=== PATIENT | female | born 1940 | race Caucasian/White ===

== ENCOUNTER → 2016-07-28 | Outpatient (CLI) | payer MEDICARE, OTHER ==
[~2016-07-28] MED LIST: 3N1 COMMODE MC; ASPI-781 PO; CIPR-193 PO; CPM MC; LAMO100T83 PO; LOSA50TA2 PO; METO100T13 PO; OXYC-481 PO; TRAM50TA2 PO; TRAZ50TA18 PO; WALK1EAC23 MC
--- NOTE | 2016-07-28 17:56 | RADRPT ---
PROCEDURE: Left knee radiographs. CLINICAL INDICATION: Left knee pain. Postop. TECHNIQUE: Three views. Weight bearing. Frontal, lateral, and patellar view. COMPARISON: 02/11/2016. FINDINGS: There is no fracture or dislocation. There is a moderate joint effusion. The soft tissues are otherwise normal. 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 There is no lytic or blastic lesion. IMPRESSION: 1. Moderate joint effusion. 2. Unremarkable total left knee arthroplasty. 3. Otherwise unremarkable study with no change from 02/11/2016. RPTAT: QQ .Luis Angel Sebastian MD, MD Date Time Electronically viewed and signed by .Luis Angel Sebastian MD, MD on 07/28/2016 17:56 .R/
== END | disposition home or self-care (01) ==
LOC: HKI 14:31
PROVIDERS: ATTEND Orthopaedic Surgery
DX: Z47.1 Aftercare following joint replacement surgery (principal); Z96.652 Presence of left artificial knee joint
CPT/HCPCS: 73562; G0463